=== PATIENT | male | born 1940 | race Caucasian/White ===

== ENCOUNTER 2017-07-25 09:23 | Inpatient (IN) | payer MEDICARE, OTHER ==
[~2017-07-25] VITALS: Ht 160 cm; Wt 81.0 kg
[~2017-07-25 09:23] MED LIST: COUM3TAB PO; LISI10TA PO; SIMV20TA OR
[2017-07-25 09:29] VITALS: BP 148/67; PULSE 84; RESP 20; TEMP 99.9; O2SAT 100
[2017-07-25] MEDS ORDERED: HYDR12.56 PO (09:33)
[2017-07-25] MEDS ORDERED: LISI10TA PO (09:33)
[2017-07-25] MEDS ORDERED: WARF-18 PO (09:33)
[2017-07-25] MEDS ORDERED: SIMV20TA PO (09:33)
[2017-07-25] MEDS ORDERED: MORPHINE SULFATE 4 MG/ML INJ IV PUSH ONE (10:00)
[2017-07-25] MEDS ORDERED: SODIUM CHLORIDE 0.9% FLUSH 10 ML FLUSH IV FLUSH PRN (10:00)
[2017-07-25] MEDS ORDERED: SODIUM CHLORID 0.9% 500 ML INJ 500 ML IV ONE (10:00)
[2017-07-25] MEDS ORDERED: ONDANSETRON HCL 4 MG/2 ML VIAL IV PUSH ONE (10:00)
[2017-07-25] MEDS ORDERED: MORPHINE SULFATE 2 MG/ML SYRINGE IV PUSH ONE (10:00)
--- NOTE | 2017-07-25 10:04 | PD ---
HPI Chief Complaint: Abdominal Pain Time Seen by Provider: 09:53 Travel History International Travel<30 days: No Contact w/Intl Traveler<30days: No Traveled to known affect area: No History of Present Illness HPI 76-year-old male patient presents to the ER today because he has had several days history of lower abdominal pains which he states is currently an 8 out of 10. He denies any vomiting, diarrhea, fevers, or any other symptoms. He does not know of any exacerbating alleviating factors. He denies any urinary symptoms or previous pain symptoms. Modifying Factors: None Associated Signs & Symptoms: Lower abdominal pain Risk Factors: None PFSH Past Medical History Cancer: No High Cholesterol: Yes Endocrine: No Genitourinary: No Headaches: Yes (hx of headaches over 20 yrs ago) Hypertension: Yes Immune Disorder: No Musculoskeletal: No Psychiatric: No Reproductive: No Respiratory: No Past Surgical History Abdominal Surgery: Yes (caitlyn ) Social History Alcohol Use: Yes (occasionally) Tobacco Use: No Substance Use: No Allergies-Medications (Allergen,Severity, Reaction): Coded Allergies: No Known Allergies (Unverified Adverse Reaction, Unknown, 07/25/17) Reported Meds & Prescriptions Reported Meds & Active Scripts Active Reported Lisinopril-Hctz 10-12.5 Mg Tab 1 Tab PO DAILY Simvastatin 20 Mg Tab 20 Mg PO DAILY Warfarin 2.5 Mg Tab 2.5 Mg PO DAILY Review of Systems Except as stated in HPI: all other systems reviewed are Neg Physical Exam Narrative GENERAL: Well-developed elderly male patient currently in mild distress. Awake and oriented 3. SKIN: Focused skin assessment warm/dry. HEAD: Atraumatic. Normocephalic. EYES: Pupils equal and round. No scleral icterus. No injection or drainage. ENT: No nasal bleeding or discharge. Mucous membranes pink and moist. NECK: Trachea midline. No JVD. CARDIOVASCULAR: Regular rate and rhythm. No murmur appreciated. RESPIRATORY: No accessory muscle use. Clear to auscultation. Breath sounds equal bilaterally. GASTROINTESTINAL: Abdomen soft, mild lower abdominal tenderness without guarding rebound, nondistended. Hepatic and splenic margins not palpable. MUSCULOSKELETAL: No obvious deformities. No clubbing. No cyanosis. No edema. NEUROLOGICAL: Awake and alert. No obvious cranial nerve deficits. Motor grossly within normal limits. Normal speech. PSYCHIATRIC: Appropriate mood and affect; insight and judgment normal. Data Data Last Documented VS Vital Signs Date Time Temp Pulse Resp B/P (MAP) Pulse Ox O2 Delivery O2 Flow Rate FiO2 07/25/17 10:45 20 100 Room Air 07/25/17 09:29 99.9 84 148/67 (94) Orders Orders Complete Blood Count With Diff (07/25/17 09:47) Comprehensive Metabolic Panel (07/25/17 09:47) Lipase (07/25/17 09:47) Urinalysis - C+S If Indicated (07/25/17 09:47) Iv Access Insert/Monitor (07/25/17 09:47) Ecg Monitoring (07/25/17 09:47) Oximetry (07/25/17 09:47) Sodium Chloride 0.9% Flush (Ns Flush) (07/25/17 10:00) Morphine Inj (Morphine Inj) (07/25/17 10:00) Ondansetron Inj (Zofran Inj) (07/25/17 10:00) Sodium Chlorid 0.9% 500 Ml Inj (Ns 500 M (07/25/17 10:00) Ct Abd/Pel W Iv Contrast(Rout) (07/25/17 09:53) Morphine Inj (Morphine Inj) (07/25/17 10:00) Iohexol 350 Inj (Omnipaque 350 Inj) (07/25/17 14:20) Admit Order (Ed Use Only) (07/25/17 14:52) Labs Laboratory Tests Test 07/25/17 10:20 07/25/17 13:20 White Blood Count 20.4 TH/MM3 Red Blood Count 5.11 MIL/MM3 Hemoglobin 16.4 GM/DL Hematocrit 47.1 % Mean Corpuscular Volume 92.2 FL Mean Corpuscular Hemoglobin 32.2 PG Mean Corpuscular Hemoglobin Concent 34.9 % Red Cell Distribution Width 13.4 % Platelet Count 346 TH/MM3 Mean Platelet Volume 8.2 FL Neutrophils (%) (Auto) 91.4 % Lymphocytes (%) (Auto) 2.8 % Monocytes (%) (Auto) 5.6 % Eosinophils (%) (Auto) 0.0 % Basophils (%) (Auto) 0.2 % Neutrophils # (Auto) 18.6 TH/MM3 Lymphocytes # (Auto) 0.6 TH/MM3 Monocytes # (Auto) 1.1 TH/MM3 Eosinophils # (Auto) 0.0 TH/MM3 Basophils # (Auto) 0.0 TH/MM3 CBC Comment DIFF FINAL Differential Comment Blood Urea Nitrogen 14 MG/DL Creatinine 1.43 MG/DL Random Glucose 170 MG/DL Total Protein 7.0 GM/DL Albumin 3.1 GM/DL Calcium Level 9.0 MG/DL Alkaline Phosphatase 51 U/L Aspartate Amino Transf (AST/SGOT) 27 U/L Alanine Aminotransferase (ALT/SGPT) 19 U/L Total Bilirubin 1.1 MG/DL Sodium Level 137 MEQ/L Potassium Level 4.0 MEQ/L Chloride Level 99 MEQ/L Carbon Dioxide Level 27.0 MEQ/L Anion Gap 11 MEQ/L Estimat Glomerular Filtration Rate 48 ML/MIN Lipase 64 U/L Urine Color LIGHT-YELLOW Urine Turbidity CLEAR Urine pH 5.0 Urine Specific [place] 1.019 Urine Protein TRACE mg/dL Urine Glucose (UA) 70 mg/dL Urine Ketones NEG mg/dL Urine Occult Blood SMALL Urine Nitrite NEG Urine Bilirubin NEG Urine Urobilinogen LESS THAN 2.0 MG/DL Urine Leukocyte Esterase NEG Urine RBC 4 /hpf Urine WBC LESS THAN 1 /hpf Urine Bacteria OCC /hpf Urine Hyaline Casts 2 /lpf Urine Mucus FEW /lpf Microscopic Urinalysis Comment CULT NOT INDICATED MDM Medical Decision Making Medical Screen Exam Complete: Yes Emergency Medical Condition: Yes Medical Record Reviewed: Yes Interpretation(s) Laboratory Tests Test 07/25/17 10:20 07/25/17 13:20 White Blood Count 20.4 TH/MM3 (4.0-11.0) Neutrophils (%) (Auto) 91.4 % (16.0-70.0) Lymphocytes (%) (Auto) 2.8 % (9.0-44.0) Neutrophils # (Auto) 18.6 TH/MM3 (1.8-7.7) Lymphocytes # (Auto) 0.6 TH/MM3 (1.0-4.8) Monocytes # (Auto) 1.1 TH/MM3 (0-0.9) Creatinine 1.43 MG/DL (0.60-1.30) Random Glucose 170 MG/DL (74-106) Albumin 3.1 GM/DL (3.4-5.0) Total Bilirubin 1.1 MG/DL (0.2-1.0) Estimat Glomerular Filtration Rate 48 ML/MIN (>89) Lipase 64 U/L (73-393) Urine Glucose (UA) 70 mg/dL (NEG) Urine Occult Blood SMALL (NEG) Urine RBC 4 /hpf (0-3) Urine Bacteria OCC /hpf (NONE) Urine Mucus FEW /lpf (OCC) Differential Diagnosis Colitis versus gastroenteritis versus diverticulitis versus UTI Narrative Course Lab work shows significant leukocytosis and CAT scan was done which shows a ruptured appendicitis. Case is discussed with Dr. Ivan who agrees to admit the patient, planning to take the patient to the OR. Diagnosis Primary Impression: Ruptured appendicitis Admitting Information Admitting Physician Requests: Admit Bib Umaña MD July 25, 2017 10:04
[2017-07-25 10:45] VITALS: RESP 20; O2SAT 100
[2017-07-25 10:53] LABS: AUTOMATED NEUTROPHIL # 18.6 TH/MM3 (1.8-7.7); BASOPHIL % 0.2 % (0.0-2.0); HEMATOCRIT 47.1 % (39.0-51.0); HEMOGLOBIN 16.4 GM/DL (13.0-17.0); LYMPH % 2.8 % (9.0-44.0); LYMPHOCYTE # 0.6 TH/MM3 (1.0-4.8); MEAN CELL VOLUME 92.2 FL (80.0-100.0); MEAN CORPUSCULAR HEMOGLOBIN 32.2 PG (27.0-34.0); MEAN CORPUSCULAR HGB CONC 34.9 % (32.0-36.0); MEAN PLATELET VOLUME 8.2 FL (7.0-11.0); MONO % 5.6 % (0.0-8.0); MONOCYTE # 1.1 TH/MM3 (0-0.9); NEUT % 91.4 % (16.0-70.0); PLATELET COUNT 346 TH/MM3 (150-450); RED BLOOD COUNT 5.11 MIL/MM3 (4.50-5.90); RED CELL DISTRIBUTION WIDTH 13.4 % (11.6-17.2); WHITE BLOOD COUNT 20.4 TH/MM3 (4.0-11.0)
[2017-07-25] MEDS ORDERED: PHENYLEPH/NS 1000 MCG/10 ML SYR IV ONE (12:00)
[2017-07-25] MEDS ORDERED: PROPOFOL 200 MG/20 ML AMP IV ONE (12:00)
[2017-07-25] MEDS ORDERED: DEXAMETHASONE SOD PHOS 4 MG/ML VIAL IV ONE (12:00)
[2017-07-25] MEDS ORDERED: ceFAZolin INJ 1,000 MG VIAL IV ONE (12:00)
[2017-07-25] MEDS ORDERED: ROCURONIUM INJ 50 MG/5 ML SYRINGE IV PUSH ONE (12:00)
[2017-07-25] MEDS ORDERED: LIDOCAINE HCL 1% PF 5 ML SYRINGE OTHER ONE (12:00)
[2017-07-25] MEDS ORDERED: SUCCINYLCHOLINE CHLORIDE 100 MG/5 ML SYRINGE IV PUSH ONE (12:00)
[2017-07-25] MEDS ORDERED: ONDANSETRON HCL 4 MG/2 ML VIAL IV ONE (12:00)
[2017-07-25 12:56] LABS: ALKALINE PHOSPHATASE 51 U/L (45-117); TOTAL BILIRUBIN ADULT 1.1 MG/DL (0.2-1.0)
[2017-07-25 13:00] LABS: ALBUMIN 3.1 GM/DL (3.4-5.0); ALT (GPT) 19 U/L (12-78); AST (GOT) 27 U/L (15-37); BLOOD UREA NITROGEN 14 MG/DL (7-18); CHLORIDE 99 MEQ/L (98-107); CREATININE 1.43 MG/DL (0.60-1.30); GLOMERULAR FILTRATION RATE 48 ML/MIN (>89); GLUCOSE,RANDOM 170 MG/DL (74-106); SODIUM (NA) 137 MEQ/L (136-145)
[2017-07-25 13:46] LABS: BACTERIA, URINE OCC /hpf; BILIRUBIN, URINE NEG (NEG); BLOOD, URINE SMALL (NEG); GLUCOSE,URINE 70 mg/dL (NEG); HYALINE CAST, URINE 2 /lpf (RARE); KETONE, URINE NEG (NEG); MUCUS URINE FEW /lpf (OCC); NITRITE,URINE NEG (NEG); URINE COLOR LIGHT-YELLOW (YELLW/STRAW); URINE LEUKOCYTE ESTERASE NEG (NEG)
[2017-07-25] MEDS ORDERED: IOHEXOL 350 MG/ML 10 ML VIAL (for RAD DIAG) IVCONTRAST ONE (14:20)
--- NOTE | 2017-07-25 14:48 | RADRPT ---
EXAM DATE/TIME: 07/25/2017 14:17 [facility] COMPARISON: No previous studies available for comparison. INDICATIONS : Lower abdominal pain. IV CONTRAST: 93 cc Omnipaque 350 (iohexol) IV ORAL CONTRAST: No oral contrast ingested. RADIATION DOSE: 14.73 CTDIvol (mGy) MEDICAL HISTORY : Hypertension. SURGICAL HISTORY : Hernia repair ENCOUNTER: Initial ACUITY: 1 day PAIN SCALE: 8/10 LOCATION: Bilateral lower quadrant TECHNIQUE: Volumetric scanning of the abdomen and pelvis was performed. Using automated exposure control and ad justment of the mA and/or kV according to patient size, radiation dose was kept as low as reasonably achievable to obtain optimal diagnostic quality images. DICOM format image data is available electro nically for review and comparison. FINDINGS: LOWER LUNGS: Mild bilateral lower lobe atelectasis. LIVER: Diffuse mild hepatic hypoechogenicity indicating mild hepatic steatosis. 1.7 cm nonenhancing cyst in the left lobe of the liver. Multiple calcified gallstones in the gallbladder. No pericholecystic infl ammatory changes. SPLEEN: Normal size without lesion. PANCREAS: Within normal limits. KIDNEYS: Normal in size and shape. There is no mass, stone or hydronephrosis. ADRENAL GLANDS: Within normal limits. VASCULAR: There is no aortic aneurysm. BOWEL/MESENTERY: Appendicolith is noted at the base of the appendix. There is dilatation of the fluid-filled proximal appendix measuring 18 mm in diameter. Adjacent focal extraluminal gas in the mesenteric fat measuring 1.7 cm in diameter. More distally the appendix has a normal diameter. Severe surrounding inflammator y change with hazy stranding opacity in the periappendiceal fat. No organized drainable peripherally enhancing fluid collection identified. Terminal ileum is seen just superior to the appendix and is wi thin normal limits. Local scattered colonic diverticula. No evidence of bowel dilatation. ABDOMINAL WALL: 5.4 cm area vocal fat containing anterior abdominal wall hernia. RETROPERITONEUM: There is no lymphadenopathy. BLADDER: No wall thickening or mass. REPRODUCTIVE: Prostate calcifications. INGUINAL: There is no lymphadenopathy or hernia. MUSCULOSKELETAL: Prominent facet arthrosis lower lumbar spine prominent osteoarthritic findings of the sacroiliac join ts. CONCLUSION: 1. Findings indicating acute appendicitis. There is an appendicolith and marked dilatation of the flu id-filled proximal appendix with severe surrounding inflammatory change. Focal extraluminal gas is se en adjacent to the mid appendix and the more distal appendix is decompressed. Findings suggest ruptur ed appendicitis. No organized drainable abscess identified. 2. Cholelithiasis. No pericholecystic inflammatory changes. Frederic Grewal MD on July 25, 2017 at 14:37 Board Certified Radiologist. This report was verified electronically.
[2017-07-25 16:35] VITALS: BP 166/57; PULSE 99; RESP 20; O2SAT 95
[2017-07-25 18:42] LABS: INTERNATIONAL NORMALIZED RATIO 2.8 RATIO; PROTHROMBIN TIME - PATIENT 27.8 SEC (9.8-11.6)
[2017-07-25 19:14] VITALS: BP 115/55; PULSE 113; RESP 15; O2SAT 95
[2017-07-25] MEDS ORDERED: PHYTONADIONE 10 MG/ML VIAL SQ ONE (20:00)
--- NOTE | 2017-07-25 20:21 | MH ---
cc: Jeovany Ivan MD, Joseph D MD Farach,Lance Schultz MD DATE OF ADMISSION: 07/25/2017 REASON FOR ADMISSION: Ruptured appendicitis with elevated white count, right lower quadrant pain. HISTORY OF PRESENT ILLNESS: This is a pleasant 76-year-old gentleman who came to the emergency room experiencing some right lower quadrant pain for several days. He denied any nausea or vomiting, but the pain got progressively worse. He came into the emergency room where a CT scan showed a perforated appendicitis. Surgery was called. Other very pertinent history is he has had a history of a pulmonary embolus, is on Coumadin, and has been on that for some time. REVIEW OF SYSTEMS: He has no shortness of breath, no chest pain, no cardiac symptomatology. He denies any nausea, vomiting or diarrhea, just pain in the right side. He says he might have some prediabetes. He has hypertension but no cardiac history and, as above, he has this pulmonary embolus that was diagnosed a few years back. PAST SURGICAL HISTORY: Apparently had a right inguinal hernia repair at one time. He has a umbilical hernia that he knows about. He did not want any surgery in the past. ALLERGIES: He is not known to be allergic to anything. MEDICATIONS: 1. Lisinopril. 2. Simvastatin. 3. Coumadin 2.5 mg a day. PHYSICAL EXAMINATION: GENERAL: He is a well-developed gentleman. He was actually walking in the room, oriented. NECK: Supple. LUNGS: Chest is clear. HEART: Regular is regular rate. ABDOMEN: Obese with an easily visualized and palpable incarcerated umbilical hernia. He has tenderness in the right lower quadrant, rebound. EXTREMITIES: Moves all extremities, no clubbing, cyanosis or edema. NEUROLOGIC: He is alert and oriented without focal deficits. LABORATORY DATA: He had a white count of 20,000, H and H 16 and 47. Chemistry essentially normal. LFTs normal. His creatinine is 1.4, lipase 64. Coags shows INR of 2.8. Urinalysis is clear. IMAGING STUDIES: CT scan shows some extraluminal air around the appendix, which is inflamed suggesting a ruptured appendicitis. He is known to have gallstones as well. ASSESSMENT: A 76-year-old gentleman with a history of a pulmonary embolus on Coumadin therapy with an elevated white count, right lower quadrant pain, perforated appendicitis. PLAN: At this time, I am making arrangements to give him some vitamin K, some fresh frozen plasma. We are waiting on the blood bank to get the products ready. Once this is infused, we can proceed to the operating room. I discussed with the patient in detail about laparoscopic appendectomy. He appeared to understand and repair of this umbilical hernia, because we will be using that site for a port site. He appeared to understand. Jeovany Ivan MD JMARGARITO/ , 07:59 PM , 08:20 PM
[2017-07-25] MEDS ORDERED: ACETAMINOPHEN 1000 MG/100 ML 100 ML IV ONE (20:52)
[2017-07-25 20:53] VITALS: BP 116/57; PULSE 94; RESP 20; TEMP 101; O2SAT 95
[2017-07-25 21:11] VITALS: BP 125/58; PULSE 85; RESP 20; TEMP 99.9; O2SAT 96
[2017-07-25] MEDS ORDERED: BUPIVACAINE/EPINEPHRINE 0.5% PF 10 ML VIAL ONE (21:17)
[2017-07-25] MEDS: LEVOFLOXACIN 500 MG PREMIX INJ 100 ML IV SCH (23:00)
--- NOTE | 2017-07-25 23:04 | HHI.PR ---
cc: Jeovany Ivan MD Immediate Post Op Note Procedure Date: July 25, 2017 Pre Op Diagnosis: (1) Ruptured appendicitis (2) Elevated white blood cell count (3) Abdominal pain (4) Umbilical hernia Post Op Diagnosis: (1) Ruptured appendicitis (2) Incarcerated ventral hernia (3) Status post laparoscopic appendectomy Surgeon: Jeovany Ivan [facility] Mental Health Worker(s): Please refer to the operating room records Procedure: Laparoscopic removal of perforated appendicitis Repair of incarcerated umbilical hernia Repair of incarcerated ventral hernia Findings: Incarcerated ventral hernia incarcerated umbilical hernia Perforated appendicitis Specimen(s) removed: Appendix Estimated blood loss: 20 cc Anesthesia: General Drains: None IVF Patient to: PACU Patient Condition: Good Implant/Devices: SEE IMPLANT LOG (if applicable) Date/Time of Procedure: SEE SURGICAL CARE RECORD Jeovany Ivan MD July 25, 2017 23:04
[2017-07-25] MEDS ORDERED: HYDR-3288 PO (23:08)
[2017-07-25] MEDS ORDERED: LEVA500T33 PO (23:11)
[2017-07-25] MEDS ORDERED: METR-1 PO (23:11)
[2017-07-25] MEDS ORDERED: Post-op Orders (for Pharmacy) XX ONE (23:15)
[2017-07-25] MEDS ORDERED: ONDANSETRON HCL 4 MG/2 ML VIAL IV PUSH PRN (23:15)
[2017-07-25] MEDS ORDERED: ACETAMINOPHEN/HYDROcodone 325 MG/5 MG TAB PO PRN (23:15)
[2017-07-25] MEDS ORDERED: ACETAMINOPHEN 325 MG TAB PO PRN (23:15)
[2017-07-25] MEDS ORDERED: DO NOT ADM ANY ANTICOAGULANT DRUGS PRN (23:30)
[2017-07-25] MEDS ORDERED: *morphine SULFATE 4 MG/ML PERIprocedure ONLY ONE ×2 (23:32→23:46)
[2017-07-25] MEDS: SODIUM CHLOR 0.9% 1000 ML INJ 1,000 ML IV SCH (23:35)
[2017-07-26] MEDS: metroNIDAZOLE 500 MG INJ 100 ML IV SCH ×3 (00:30→16:06)
[2017-07-26] MEDS: ACETAMINOPHEN 1000 MG/100 ML 100 ML IV SCH ×4 (03:24→20:35)
[2017-07-26 04:00] VITALS: BP 124/58; PULSE 66; RESP 18; TEMP 97.2; O2SAT 96
[2017-07-26] MEDS ORDERED: SUGAMMADEX SODIUM 200 MG/2 ML VIAL IV PUSH ONE (06:24)
[2017-07-26 08:00] VITALS: BP 108/67; PULSE 69; RESP 18; TEMP 97.4; O2SAT 97
[2017-07-26 12:00] VITALS: BP 116/58; PULSE 71; RESP 18; TEMP 97.2; O2SAT 95
[2017-07-26] MEDS: ACETAMINOPHEN/HYDROcodone 325 MG/5 MG TAB PO PRN (13:35)
[2017-07-26] MEDS: SODIUM CHLOR 0.9% 1000 ML INJ 1,000 ML IV SCH ×2 (15:00→20:35)
[2017-07-26 16:00] VITALS: BP 108/57; PULSE 75; RESP 18; TEMP 97.4; O2SAT 96
[2017-07-26 20:00] VITALS: BP 137/65; PULSE 78; RESP 18; TEMP 97.4; O2SAT 96
[2017-07-26] MEDS: LEVOFLOXACIN 500 MG PREMIX INJ 100 ML IV SCH (20:36)
--- NOTE | 2017-07-26 22:38 | HHI.PR ---
Subjective Subjective Notes Tolerating clears, no bowel function other than small flatus, pain controlled Objective Vitals/I&O Vital Signs Date Time Temp Pulse Resp B/P (MAP) Pulse Ox O2 Delivery O2 Flow Rate FiO2 07/26/17 20:00 97.4 78 18 137/65 (89) 96 07/26/17 00:30 Nasal Cannula 3 Lungs: Clear (soft incisional tenderness) A/P Assessment and Plan POD 1 Lap appy for perforation, small flatus PLAN OOB Pain control advance diet slowly when bowel fxn abx dvt ppx anticipate d/c tomorrow Star Bah MD July 26, 2017 22:38
[2017-07-27] VITALS: BP 109/56; PULSE 73; RESP 18; TEMP 97.7; O2SAT 96
[2017-07-27] MEDS: SODIUM CHLOR 0.9% 1000 ML INJ 1,000 ML IV SCH (04:30)
[2017-07-27 08:00] VITALS: BP 122/61; PULSE 78; RESP 18; TEMP 97.4; O2SAT 95
[2017-07-27] MEDS: ACETAMINOPHEN/HYDROcodone 325 MG/5 MG TAB PO PRN (10:13)
--- NOTE | 2017-07-27 10:35 | HHI.PR ---
cc: Jeovany Ivan MD Subjective Subjective Notes DAILY PROGRESS NOTE FOR SURGICAL ATTENDING, DR. JEOVANY IVAN Ambulating in the room No issues Feeling hungry Objective Vitals/I&O Vital Signs Date Time Temp Pulse Resp B/P (MAP) Pulse Ox O2 Delivery O2 Flow Rate FiO2 07/27/17 08:00 97.4 78 18 122/61 (81) 95 07/26/17 00:30 Nasal Cannula 3 Labs Laboratory Tests Test 07/25/17 10:20 07/25/17 13:20 07/25/17 18:01 White Blood Count 20.4 TH/MM3 Red Blood Count 5.11 MIL/MM3 Hemoglobin 16.4 GM/DL Hematocrit 47.1 % Mean Corpuscular Volume 92.2 FL Mean Corpuscular Hemoglobin 32.2 PG Mean Corpuscular Hemoglobin Concent 34.9 % Red Cell Distribution Width 13.4 % Platelet Count 346 TH/MM3 Mean Platelet Volume 8.2 FL Neutrophils (%) (Auto) 91.4 % Lymphocytes (%) (Auto) 2.8 % Monocytes (%) (Auto) 5.6 % Eosinophils (%) (Auto) 0.0 % Basophils (%) (Auto) 0.2 % Neutrophils # (Auto) 18.6 TH/MM3 Lymphocytes # (Auto) 0.6 TH/MM3 Monocytes # (Auto) 1.1 TH/MM3 Eosinophils # (Auto) 0.0 TH/MM3 Basophils # (Auto) 0.0 TH/MM3 CBC Comment DIFF FINAL Differential Comment Blood Urea Nitrogen 14 MG/DL Creatinine 1.43 MG/DL Random Glucose 170 MG/DL Total Protein 7.0 GM/DL Albumin 3.1 GM/DL Calcium Level 9.0 MG/DL Alkaline Phosphatase 51 U/L Aspartate Amino Transf (AST/SGOT) 27 U/L Alanine Aminotransferase (ALT/SGPT) 19 U/L Total Bilirubin 1.1 MG/DL Sodium Level 137 MEQ/L Potassium Level 4.0 MEQ/L Chloride Level 99 MEQ/L Carbon Dioxide Level 27.0 MEQ/L Anion Gap 11 MEQ/L Estimat Glomerular Filtration Rate 48 ML/MIN Lipase 64 U/L Urine Color LIGHT-YELLOW Urine Turbidity CLEAR Urine pH 5.0 Urine Specific [place] 1.019 Urine Protein TRACE mg/dL Urine Glucose (UA) 70 mg/dL Urine Ketones NEG mg/dL Urine Occult Blood SMALL Urine Nitrite NEG Urine Bilirubin NEG Urine Urobilinogen LESS THAN 2.0 MG/DL Urine Leukocyte Esterase NEG Urine RBC 4 /hpf Urine WBC LESS THAN 1 /hpf Urine Bacteria OCC /hpf Urine Hyaline Casts 2 /lpf Urine Mucus FEW /lpf Microscopic Urinalysis Comment CULT NOT INDICATED Prothrombin Time 27.8 SEC Prothromb Time International Ratio 2.8 RATIO Activated Partial Thromboplast Time 43.4 SEC Radiology Last Impressions Abdomen/Pelvis CT 07/25/17 0953 Signed Impressions: Service Date/Time: Tuesday, July 25, 2017 14:17 - CONCLUSION: 1. Findings indicating acute appendicitis. There is an appendicolith and marked dilatation of the fluid-filled proximal appendix with severe surrounding inflammatory change. Focal extraluminal gas is seen adjacent to the mid appendix and the more distal appendix is decompressed. Findings suggest ruptured appendicitis. No organized drainable abscess identified. 2. Cholelithiasis. No pericholecystic inflammatory changes. Frederic Grewal MD Cardiovascular: Regular Lungs: Clear Abdomen: Other (lap sites c/d/i; mildly distended ) Extremities: No edema A/P Problem List: (1) Status post laparoscopic appendectomy ICD Codes: Z90.49 - Acquired absence of other specified parts of digestive tract Status: Acute (2) Ruptured appendicitis ICD Codes: K35.2 - Acute appendicitis with generalized peritonitis Status: Acute (3) Gallstones ICD Codes: K80.20 - Calculus of gallbladder without cholecystitis without obstruction Status: Chronic (4) Abnormal CT of the abdomen ICD Codes: R93.5 - Abnormal findings on diagnostic imaging of other abdominal regions, including retroperitoneum Status: Acute (5) History of pulmonary embolus (PE) ICD Codes: Z86.711 - Personal history of pulmonary embolism (6) intermediate manager (current) use of anticoagulants ICD Codes: Z79.01 - intermediate manager (current) use of anticoagulants Status: Chronic (7) Warfarin anticoagulation ICD Codes: Z79.01 - intermediate manager (current) use of anticoagulants Assessment and Plan 76 year old male POD2 lap appy; perforated -Full liquids; advance as tolerated -Watch for ileus -OOB and mobilize -DC IVF -Continue antibiotics -Discussed with VITOR Parikh Attending Statement NOTE FOR SURGICAL ATTENDING, DR. JEOVANY IVAN I agree with above assessment and plan. The exam, history, and the medical decision-making described in the above note were completed with the assistance of the mid-level provider. I reviewed and agree with the findings presented. I attest that I had a [id number] encounter with the patient on the same day, and personally performed and documented my assessment and findings in the medical record. The following services were provided during this hospital visit: Chart data review, vital sign assessments/reviewing monitor data Review of consultations notes if present. Medication orders/review and/or management Ordering and/or reviewing lab tests Ordering and/or interpreting/reviewing x-rays and/or diagnostic studies Care of the patient and discussion of the patient with the care team Documentation time To help prompt me to consider important information that might be impacting today's encounter and assessment, Information from prior notes written by myself or my colleagues may have been "brought forward/copy and pasted" into today's note. Lela Duran/Development Scientist DEON July 27, 2017 10:35 Jeovany Ivan MD July 27, 2017 19:13
[2017-07-27 12:00] VITALS: BP 117/50; PULSE 80; RESP 18; TEMP 97.9; O2SAT 95
[2017-07-27 16:00] VITALS: BP 108/56; PULSE 77; RESP 18; TEMP 98.3; O2SAT 96
--- NOTE | 2017-07-27 17:49 | MP ---
cc: Jeovany Ivan MD,Herminio Schultz MD DATE OF OPERATION: 07/25/2017 PREOPERATIVE DIAGNOSIS: Perforated appendicitis, umbilical ventral hernia. POSTOPERATIVE DIAGNOSIS: Perforated appendicitis, umbilical ventral hernia. PROCEDURE Laparoscopic appendectomy of perforated appendicitis Repair of umbilical hernia and ventral hernia ANESTHESIA: General. SURGEON: Jeovany Ivan MD INDICATIONS FOR PROCEDURE: This is a pleasant elderly gentleman, 76 years old, came into the hospital, was found to have a perforated appendix. He is on Coumadin for a previous pulmonary embolus. This was reversed and now set for surgery. DESCRIPTION OF PROCEDURE: The patient was taken to the operating room and placed in supine position after anesthesia. Antibiotics were given. His abdomen was prepped with Betadine. Timeout is done. We make an incision above the umbilicus through this umbilical hernia. In palpating the umbilical hernia and entering the abdomen, it is noted that he has a 2 cm ventral hernia as well above the umbilical hernia. Placed the balloon trocar into the umbilical hernia and the abdomen is insufflated 15 mmHg. The camera was introduced. Two other working ports were placed, 5 mm above the pubic tubercle and a 5 mm in between the 2 previously placed ports. The appendix can be seen. It is somewhat retrocecal, obviously inflamed and perforated. He had some mild amount of purulent material. We were able to elevate this up with blunt and hydrodissection. We then placed the camera at the inferior port to visualize the appendix better. The appendiceal mesentery was taken down with a Harmonic scalpel down to the base of the appendix, which is tied off with an Endo tie, PDS x 2. The appendix was then amputated using the Harmonic scalpel and placed in an EndoCatch and pulled out through the umbilical port site. We then checked our dissection site. There is excellent hemostasis. We irrigated copiously with 3 liters of saline, sucked the irrigating solution out of the pelvis and over the liver. I attempt to see the gallbladder because he does have stones, which I believe he is asymptomatic from. After irrigating solution, CO2 was removed. We then removed all trocars. We make the incision above the umbilicus, a little bit more superiorly to incorporate both the ventral hernia and umbilical hernia. This is then closed with an interrupted Ethibond suture in a vertical fashion to completely close both the ventral hernia and the umbilical defect. The deep layer was then closed with 2-0 Vicryl and skin was closed with a 4-0 Vicryl. The 2 other port sites closed with 4-0 Vicryl. Steri-Strips, dry sterile bandage was applied. The patient tolerated the procedure well, had no immediate postop complications. MD KRISTY Estrada/MARIS , 05:06 PM , 05:48 PM MORRIS
[2017-07-27 20:00] VITALS: BP 135/65; PULSE 86; RESP 17; TEMP 98.2; O2SAT 95
[2017-07-28] MEDS: LEVOFLOXACIN 500 MG PREMIX INJ 100 ML IV SCH (00:05)
[2017-07-28 00:24] VITALS: BP 135/60; PULSE 77; RESP 18; TEMP 98.1; O2SAT 94
[2017-07-28] MEDS: ACETAMINOPHEN/HYDROcodone 325 MG/5 MG TAB PO PRN (07:59)
[2017-07-28 08:00] VITALS: BP 123/73; PULSE 72; RESP 18; TEMP 97.8; O2SAT 95
--- NOTE | 2017-07-28 09:26 | HHI.PR ---
cc: Jeovany Ivan MD Subjective Subjective Notes DAILY PROGRESS NOTE FOR SURGICAL ATTENDING, DR. JEOVANY IVAN Up to chair Feeling okay today Tolerated full liquids Objective Vitals/I&O Vital Signs Date Time Temp Pulse Resp B/P (MAP) Pulse Ox O2 Delivery O2 Flow Rate FiO2 07/28/17 08:00 97.8 72 18 123/73 (90) 95 07/26/17 00:30 Nasal Cannula 3 Labs Laboratory Tests Test 07/25/17 10:20 07/25/17 13:20 07/25/17 18:01 White Blood Count 20.4 TH/MM3 Red Blood Count 5.11 MIL/MM3 Hemoglobin 16.4 GM/DL Hematocrit 47.1 % Mean Corpuscular Volume 92.2 FL Mean Corpuscular Hemoglobin 32.2 PG Mean Corpuscular Hemoglobin Concent 34.9 % Red Cell Distribution Width 13.4 % Platelet Count 346 TH/MM3 Mean Platelet Volume 8.2 FL Neutrophils (%) (Auto) 91.4 % Lymphocytes (%) (Auto) 2.8 % Monocytes (%) (Auto) 5.6 % Eosinophils (%) (Auto) 0.0 % Basophils (%) (Auto) 0.2 % Neutrophils # (Auto) 18.6 TH/MM3 Lymphocytes # (Auto) 0.6 TH/MM3 Monocytes # (Auto) 1.1 TH/MM3 Eosinophils # (Auto) 0.0 TH/MM3 Basophils # (Auto) 0.0 TH/MM3 CBC Comment DIFF FINAL Differential Comment Blood Urea Nitrogen 14 MG/DL Creatinine 1.43 MG/DL Random Glucose 170 MG/DL Total Protein 7.0 GM/DL Albumin 3.1 GM/DL Calcium Level 9.0 MG/DL Alkaline Phosphatase 51 U/L Aspartate Amino Transf (AST/SGOT) 27 U/L Alanine Aminotransferase (ALT/SGPT) 19 U/L Total Bilirubin 1.1 MG/DL Sodium Level 137 MEQ/L Potassium Level 4.0 MEQ/L Chloride Level 99 MEQ/L Carbon Dioxide Level 27.0 MEQ/L Anion Gap 11 MEQ/L Estimat Glomerular Filtration Rate 48 ML/MIN Lipase 64 U/L Urine Color LIGHT-YELLOW Urine Turbidity CLEAR Urine pH 5.0 Urine Specific [place] 1.019 Urine Protein TRACE mg/dL Urine Glucose (UA) 70 mg/dL Urine Ketones NEG mg/dL Urine Occult Blood SMALL Urine Nitrite NEG Urine Bilirubin NEG Urine Urobilinogen LESS THAN 2.0 MG/DL Urine Leukocyte Esterase NEG Urine RBC 4 /hpf Urine WBC LESS THAN 1 /hpf Urine Bacteria OCC /hpf Urine Hyaline Casts 2 /lpf Urine Mucus FEW /lpf Microscopic Urinalysis Comment CULT NOT INDICATED Prothrombin Time 27.8 SEC Prothromb Time International Ratio 2.8 RATIO Activated Partial Thromboplast Time 43.4 SEC Radiology Last Impressions Abdomen/Pelvis CT 07/25/17 0953 Signed Impressions: Service Date/Time: Tuesday, July 25, 2017 14:17 - CONCLUSION: 1. Findings indicating acute appendicitis. There is an appendicolith and marked dilatation of the fluid-filled proximal appendix with severe surrounding inflammatory change. Focal extraluminal gas is seen adjacent to the mid appendix and the more distal appendix is decompressed. Findings suggest ruptured appendicitis. No organized drainable abscess identified. 2. Cholelithiasis. No pericholecystic inflammatory changes. Frederic Grewal MD Cardiovascular: Regular Lungs: Clear Abdomen: Other (incisions c/d/i; binder in place; minimally tender to palpation ) Extremities: No edema A/P Problem List: (1) Status post laparoscopic appendectomy ICD Codes: Z90.49 - Acquired absence of other specified parts of digestive tract Status: Acute (2) Ruptured appendicitis ICD Codes: K35.2 - Acute appendicitis with generalized peritonitis Status: Acute (3) Gallstones ICD Codes: K80.20 - Calculus of gallbladder without cholecystitis without obstruction Status: Chronic (4) Abnormal CT of the abdomen ICD Codes: R93.5 - Abnormal findings on diagnostic imaging of other abdominal regions, including retroperitoneum Status: Acute (5) History of pulmonary embolus (PE) ICD Codes: Z86.711 - Personal history of pulmonary embolism (6) longterm (current) use of anticoagulants ICD Codes: Z79.01 - longterm (current) use of anticoagulants Status: Chronic (7) Warfarin anticoagulation 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 JEOVANY IVAN I agree with above assessment and plan. The following services were provided during this hospital visit: Chart data review, vital sign assessments/reviewing monitor data Review of consultations notes if present. Medication orders/review and/or management Ordering and/or reviewing lab tests Ordering and/or interpreting/reviewing x-rays and/or diagnostic studies Care of the patient and discussion of the patient with the care team Documentation time To help prompt me to consider important information that might be impacting today's encounter and assessment, Information from prior notes written by myself or my colleagues may have been "brought forward/copy and pasted" into today's note. Lela Duran/First Timothy CHAVARRIA July 28, 2017 09:26 Jeovany Ivan MD July 28, 2017 12:41
[2017-07-28 12:00] VITALS: BP 133/66; PULSE 70; RESP 19; TEMP 97.7; O2SAT 96
[2017-07-28] MEDS: metroNIDAZOLE 500 MG TAB PO SCH ×2 (13:21→22:10)
[2017-07-28 16:00] VITALS: BP 135/67; PULSE 71; RESP 18; TEMP 98.7; O2SAT 95
[2017-07-28] MEDS ORDERED: WARFARIN SOD 2.5 MG TAB PO SCH (16:00)
[2017-07-28 20:00] VITALS: BP 145/69; PULSE 79; RESP 20; TEMP 99; O2SAT 98
[2017-07-28] MEDS ORDERED: LEVOFLOXACIN 500 MG TAB PO SCH (23:00)
[2017-07-29 00:27] VITALS: BP 130/70; PULSE 79; RESP 18; TEMP 98.6; O2SAT 96
[2017-07-29] MEDS: metroNIDAZOLE 500 MG TAB PO SCH ×2 (04:57→13:02)
[2017-07-29 08:00] VITALS: BP 129/68; PULSE 74; RESP 18; TEMP 97.4; O2SAT 96
[2017-07-29 12:00] VITALS: BP 128/64; PULSE 74; RESP 18; TEMP 97.2; O2SAT 95
--- NOTE | 2017-07-29 15:23 | HHI.DS ---
Discharge Summary Admission Date July 25, 2017 at 14:54 Discharge Date: July 29, 2017 Admitting Diagnosis Ruptured appendicitis (1) Status post laparoscopic appendectomy ICD Codes: Z90.49 - Acquired absence of other specified parts of digestive tract Status: Acute (2) Ruptured appendicitis ICD Codes: K35.2 - Acute appendicitis with generalized peritonitis Status: Acute (3) Gallstones ICD Codes: K80.20 - Calculus of gallbladder without cholecystitis without obstruction Status: Chronic (4) Abnormal CT of the abdomen ICD Codes: R93.5 - Abnormal findings on diagnostic imaging of other abdominal regions, including retroperitoneum Status: Acute (5) History of pulmonary embolus (PE) ICD Codes: Z86.711 - Personal history of pulmonary embolism (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 CBC/BMP: 07/25/17 1020 07/25/17 1020 PE at Discharge Alert and awake Cardio: RRR Resp: CTAB Abd: incisions c/d/i; abdominal binder in place Hospital Course This is a 76 year old male s/p laparoscopic appendectomy (perforated) and repair of an incarcerated ventral hernia and umbilical hernia. The patient's diet was advanced as tolerated. He was transitioned to oral antibiotics. His pain was controlled using oral pain medications. His Coumadin was restarted. He will follow up next week with Dr. Ivan as well as his PCP. Pt Condition on Discharge: Good Discharge Disposition: Discharge Home Discharge Instructions DIET: Follow Instructions for: As Tolerated, No Restrictions Activities you can perform: See Additionl Instruction Activities to Avoid: Concussion Sports, Contact Sports, Lifting/Bending, Weight Bearing, Prolonged Standing, Strenuous Activity, Bathing, Driving Other Activity Instructions: Okay to shower Pat incisions dry Avoid heavy pushing, pulling or lifting Follow up Referrals: PCP Follow-up - 1 Week Surgical - 08/06/17 with Jeovany Ivan MD Appt set for August 06 at 9:40AM New Medications: Hydrocodone-Acetaminophen ([place]) 7.5-325 mg Tab 1 TAB PO Q6H PRN for PAIN, #28 TAB 0 Refills Levofloxacin (Levaquin) 500 Mg Tablet 500 MG PO DAILY for Infection, #7 TAB 0 Refills Metronidazole (Flagyl) 500 Mg Tab 500 MG PO TID for Infection for 7 Days, #21 TAB 0 Refills Continued Medications: Lisinopril-Hctz (Lisinopril-Hctz) 10-12.5 Mg Tab 1 TAB PO DAILY for Blood Pressure Management, #30 TAB 0 Refills Simvastatin (Simvastatin) 20 Mg Tab 20 MG PO DAILY for Cholesterol Management, #30 TAB 0 Refills Warfarin (Warfarin) 2.5 Mg Tab 2.5 MG PO DAILY for Blood Clot Prevention, #30 TAB 0 Refills cc: Jeovany Ivan MD; Herminio Gann MD Lela Duran/Basket Patcher DEON July 29, 2017 15:23 Jeovany Ivan MD July 29, 2017 15:43
== END 2017-07-29 15:16 | disposition home or self-care (01) | DRG 339 ==
LOC: NEPC 09:23 → NEDA 14:54 → N07B 07-26 00:45
PROVIDERS: ADMIT Surgery; ATTEND Surgery
PROC: 0WQF0ZZ Repair Abdominal Wall, Open Approach (ICD-10-PCS; 2017-07-25)
PROC: 30233K1 Transfusion of Nonautologous Frozen Plasma into Peripheral Vein, Percutaneous Approach (ICD-10-PCS; 2017-07-25)
PROC: 0DTJ4ZZ Resection of Appendix, Percutaneous Endoscopic Approach (ICD-10-PCS; principal; 2017-07-25 21:34)
DX: K35.2 Acute appendicitis with generalized peritonitis (principal); K42.0 Umbilical hernia with obstruction, without gangrene; K43.6 Other and unspecified ventral hernia with obstruction, without gangrene; I10 Essential (primary) hypertension; K80.20 Calculus of gallbladder without cholecystitis without obstruction; E78.00 Pure hypercholesterolemia, unspecified; Z86.711 Personal history of pulmonary embolism; Z79.01 Long term (current) use of anticoagulants; E66.9 Obesity, unspecified; Z68.31 Body mass index [BMI] 31.0-31.9, adult
CPT/HCPCS: 36430; 74177; 80053; 81001; 82948; 83690; 85025; 85610; 85730; 86900; 86901; 86927; 88304; 94150; 96361; 96374; 96375; J0131; J0330; J0690; J1100; J1956; J2270; J2370; J2405; J3010; J3430; J7030; J7040; P9017; Q9967